=== PATIENT | female | born 2000 | race Caucasian/White ===

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

== ENCOUNTER → 2020-08-01 | Outpatient (CLI) | payer OTHER ==
[~2020-08-01] MED LIST: CLARITIN10 MG PO; FLONASE ALLERG9.9 ML NAS; PREDNISONE10 MG PO; ROBITUSSIN DM 105 ML PO
== END | disposition home or self-care (01) ==
LOC: LAB 16:06
PROVIDERS: ATTEND Pediatrics
DX: N39.0 Urinary tract infection, site not specified (principal)

== ENCOUNTER → 2021-04-28 | Outpatient (CLI) | payer OTHER ==
[2021-04-28 14:09] LABS: BASO % 0.3 % (0.0-1.0); EOS # 0.4 10*3/uL (0.0-0.4); EOS % 4.1 % (1.0-4.0); HEMATOCRIT 41.3 % (37.0-47.0); LYMPH # 2.7 10*3/uL (1.3-4.4); LYMPH % 26.1 % (27.0-41.0); MEAN CELL VOLUME 89.4 fl (81.0-99.0); MEAN CORPUSCULAR HGB 29.2 pg (27.0-31.0); MEAN CORPUSCULAR HGB CONC 32.7 g/dl (33.0-37.0); MEAN PLATELET VOLUME 8.7 fl (9.6-12.3); MONO # 0.5 10*3/uL (0.1-1.0); MONO % 4.6 % (3.0-9.0); NEUT # 6.7 10*3/uL (2.3-7.9); NEUT % 64.4 % (47.0-73.0); PLATELET COUNT AUTOMATED 296 10*3/uL (130-400); RED BLOOD COUNT 4.62 10*6/uL (4.10-5.10); RED CELL DISTRI WIDTH 12.6 % (0-14.5); WHITE BLOOD COUNT 10.4 10*3/uL (4.8-10.8)
[2021-04-28 14:22] LABS: ALBUMIN 3.4 gm/dl (3.1-4.5); ALKALINE PHOSPHATASE 81 U/L (45-117); BUN 10 mg/dl (7-24); CHLORIDE 105 mmol/L (98-107); CREATININE 0.66 mg/dL (0.55-1.02); POTASSIUM 4.1 mmol/L (3.5-5.1); SGOT/AST 10 IU/L (3-35); SGPT/ALT 22 U/L (12-78); SODIUM 138 mmol/L (136-145); TOTAL PROTEIN 7.2 gm/dL (6.4-8.2)
== END | disposition home or self-care (01) ==
LOC: LAB 13:26
PROVIDERS: ATTEND Pediatrics
DX: M25.552 Pain in left hip (principal)

== ENCOUNTER → 2021-05-05 | Outpatient (CLI) | payer OTHER | END | disposition home or self-care (01) | LOC: US 08:30 | PROVIDERS: ATTEND Pediatrics | DX: R10.32 Left lower quadrant pain (principal) ==

== ENCOUNTER → 2021-08-13 | Outpatient (CLI) | payer OTHER | LOC: RAD 14:39 | PROVIDERS: ATTEND Pediatrics | DX: R05.9 Cough, unspecified (principal) ==